=== PATIENT | male | born 1960 | race Caucasian/White ===

== ENCOUNTER 2016-11-17 12:55 | Day surgery (SDC) | payer BC ==
[~2016-11-17] VITALS: Ht 193 cm; Wt 130.3 kg
[2016-11-17] VITALS (8 sets, daily range): BP systolic 126–162; BP diastolic 67–98; PULSE 57–64; TEMP 97.5–98
[2016-11-17] MEDS ORDERED: NORVASC 5MG5 MG/TAB PO (13:32)
[2016-11-17] MEDS ORDERED: COZAAR100 MG PO (13:33)
[2016-11-17] MEDS ORDERED: ZEBETA 5MG5 MG PO (13:33)
[2016-11-17] MEDS ORDERED: ASPIRIN 81M81 MG/TA2 PO (13:34)
[2016-11-17] MEDS ORDERED: NITROSTAT0.4 MG/TAB SL (13:34)
[2016-11-18 00:31] VITALS: BP 132/72; PULSE 62
[2016-11-18 04:00] VITALS: BP 135/79; PULSE 61; TEMP 98.5
[2016-11-18 09:00] VITALS: BP 122/74; PULSE 71; TEMP 98.9
== END 2016-11-18 12:05 | disposition home or self-care (01) ==
LOC: SDCO 12:55 → SURG 20:46 → SDCO 11-18 12:05
DX: N43.3 Hydrocele, unspecified (principal); K40.90 Unilateral inguinal hernia, without obstruction or gangrene, not specified as recurrent; I25.10 Atherosclerotic heart disease of native coronary artery without angina pectoris; Z95.5 Presence of coronary angioplasty implant and graft; Z90.49 Acquired absence of other specified parts of digestive tract; I25.2 Old myocardial infarction; I10 Essential (primary) hypertension; K21.9 Gastro-esophageal reflux disease without esophagitis; Z53.33 Arthroscopic surgical procedure converted to open procedure
CPT/HCPCS: OP; A4315; J1100; J2270; J2405; J2704; J2710; J3010; J7120